=== PATIENT | male | born 2000 | race African-American/Black ===

== ENCOUNTER 2018-02-12 19:43 | Emergency (ER) | payer SELFPAY ==
[~2018-02-12] VITALS: Ht 177.8 cm; Wt 72.6 kg
[2018-02-12 19:52] VITALS: Ht 177.8 cm; Wt 72.6 kg
[2018-02-12 20:33] VITALS: BP 142/92
== END 2018-02-12 20:33 | disposition home or self-care (01) ==
LOC: ED 19:43
DX: Z04.1 Encounter for examination and observation following transport accident (principal); V44.6XXA Car passenger injured in collision with heavy transport vehicle or bus in traffic accident, initial encounter; Y93.89 Activity, other specified; Y92.413 State road as the place of occurrence of the external cause; Y99.8 Other external cause status